=== PATIENT | male | born 1965 | race American Indian/Alaskan Native ===

== ENCOUNTER 2016-11-16 22:07 | Emergency (ER) | payer OTHER ==
[2016-11-16 22:14] VITALS: BP 126/88; PULSE 92; RESP 18; TEMP 98.1; O2SAT 99
--- NOTE | 2016-11-16 22:48 | C.PDOC ---
History Of Present Illness 51 y/o male c/o decreased hearing to the right ear after cleaning his ear with cotton-tip today. Patient notes his hearing worsened and is unsure if cotton tip was left in his ear. Denies fever, chills, ear discharge, bleeding, or any other complaints. Time Seen by Provider: 11/16/16 22:21 Chief Complaint (Nursing): ENT Problem History Per: Patient History/Exam Limitations: None Onset/Duration Of Symptoms: Hrs Current Symptoms Are (Timing): Still Present Quality (Ear): denies: Pain W/Touch, Discharge Severity: Mild Past Medical History Reviewed: Historical Data, Nursing Documentation, Vital Signs Vital Signs: Last Vital Signs Temp 98.1 F 11/16/16 22:11 Pulse 92 H 11/16/16 22:11 Resp 18 11/16/16 22:11 BP 126/88 11/16/16 22:11 Pulse Ox 99 11/16/16 23:37 - Medical History PMH: Asthma, HTN Family History: States: Unknown Family Hx - Social History Hx Alcohol Use: Yes Hx Substance Use: No - Immunization History Hx Tetanus Toxoid Vaccination: No Hx Influenza Vaccination: No Hx Pneumococcal Vaccination: No Review Of Systems Constitutional: Negative for: Fever, Chills ENT: Positive for: Other (Decreased right ear hearing. ). Negative for: Ear Discharge (No bleeding) Physical Exam - Physical Exam Appears: Non-toxic, No Acute Distress Skin: Warm, Dry Head: Atraumatic, Normacephalic, No Swelling (facial) Eye(s): bilateral: Normal Inspection Ear(s): Left: Normal, Right: TM Obscured By Wax (No foreign body noted.) Neurological/Psych: Oriented x3, Normal Speech, Normal Cognition ED Course And Treatment O2 Sat by Pulse Oximetry: 99 (RA) Pulse Ox Interpretation: Normal Progress Note: Impression: 51 y/o male c/o decrease hearing to the right ear after cleaning his ear with cotton-tip today. Patient is in no acute distress at this time. Patient was d/c on ear wax removal drops and was instructed to follow up with ENTfor further evaluation and to return if symptoms worsens. Disposition - Disposition Referrals: Param Garcia MD [Staff Provider] - Disposition: HOME/ ROUTINE Disposition Time: 22:45 Condition: STABLE Additional Instructions: Use ear drops as directed Follow up with ENT Return to ER if worse Prescriptions: Carbamide Peroxide [Debrox 15 Ml] 5 drop AD BID #1 bottle Instructions: Cerumen Impaction (ED) Forms: [facility] (T[place]anian) - Clinical Impression Clinical Impression: Impacted cerumen of right ear - Scribe Statement The provider has reviewed the documentation as recorded by the Scribe Danielle zapata All medical record entries made by the Scribe were at my direction and personally dictated by me. I have reviewed the chart and agree that the record accurately reflects my personal performance of the history, physical exam, medical decision making, and the department course for this patient. I have also personally directed, reviewed, and agree with the discharge instructions and disposition.
== END 2016-11-16 22:56 | disposition home or self-care (01) ==
LOC: SUPCPDRO 22:07 → C.ER 22:07
DX: H61.21 Impacted cerumen, right ear (principal)

== ENCOUNTER 2018-05-28 20:05 | Emergency (ER) | payer OTHER ==
[2018-05-28 20:24] VITALS: RESP 18; O2SAT 100
[2018-05-28] MEDS ORDERED: Hydrocodone/Acetaminophen 5 mg /300 mg Tab PO STA (20:37)
[2018-05-28] MEDS ORDERED: Sodium Chloride 0.9% 1,000 ML IV STA (20:38)
--- NOTE | 2018-05-28 21:35 | C.PDOC ---
History Of Present Illness 52 year old male with history of scoliosis and right rib pain presents to the emergency department with complaints of rib pain and and migraine headache. Patient reports that due to his scoliosis, his ribs rub on his hipbone and cause the pain. Patient reports a history of chronic migraine. Patient reports multiple episodes of vomiting today. Patient states he normally takes Excedrin for pain, but has been unable to take it today due to the vomiting. Patient's also reports that he seems hotter than normal, but states that they did not obtain a temperature. Patient denies trauma, chest pain, shortness of breath, abdominal pain, and change in urination. Time Seen by Provider: 05/28/18 20:23 Chief Complaint (Nursing): Back Pain History Per: Patient History/Exam Limitations: no limitations Onset/Duration Of Symptoms: Hrs Current Symptoms Are (Timing): Still Present Quality Of Discomfort: "Pain" Severity: Severe Previous Symptoms: Back Pain, Chronic Pain, Other (migraine) Associated Symptoms: None Past Medical History Reviewed: Historical Data, Nursing Documentation, Vital Signs Vital Signs: Last Vital Signs Temp 98.3 F 05/28/18 20:13 Pulse 73 05/28/18 20:13 Resp 18 05/28/18 20:13 BP 117/78 05/28/18 20:13 Pulse Ox 100 05/28/18 20:13 - Medical History PMH: Asthma, HTN Surgical History: No Surg Hx Family History: States: Unknown Family Hx - Social History Hx Alcohol Use: Yes Hx Substance Use: No - Immunization History Hx Tetanus Toxoid Vaccination: No Hx Influenza Vaccination: No Hx Pneumococcal Vaccination: No Review Of Systems Constitutional: Negative for: Fever, Chills Eyes: Negative for: Pain, Other (scleral icterus) ENT: Negative for: Mouth Swelling Cardiovascular: Positive for: Chest Pain (rib pain) Respiratory: Negative for: Cough, Shortness of Breath Gastrointestinal: Positive for: Vomiting. Negative for: Nausea, Diarrhea Genitourinary: Negative for: Dysuria, Hematuria Musculoskeletal: Positive for: Back Pain Skin: Negative for: Rash Neurological: Negative for: Weakness, Numbness, Dizziness Physical Exam - Physical Exam Appears: Non-toxic, In Acute Distress (uncomfortable), Other (patient is holding his right mid to lower back) Skin: No Normal Color, No Warm, No Rash Head: Atraumatic, Normacephalic Eye(s): bilateral: Normal Inspection (no scleral icterus), PERRL, EOMI Ear(s): Bilateral: Normal (no drainage) Nose: Normal Oral Mucosa: Moist Throat: Normal (no swelling or injection), No Erythema, Other (airway patent) Neck: Normal ROM, Supple Chest: Symmetrical Cardiovascular: Rhythm Regular, No Murmur Respiratory: Normal Breath Sounds, No Accessory Muscle Use, Other (normal inspiratory effort) Gastrointestinal/Abdominal: Soft, No Distention Back: CVA Tenderness, No Vertebral Tenderness Extremity: Normal ROM Extremity: Bilateral: Atraumatic Pulses: Left Dorsalis Pedis: Normal, Right Dorsalis Pedis: Normal Neurological/Psych: Oriented x3, Normal Speech, Normal Cognition, Normal Cranial Nerves ED Course And Treatment O2 Sat by Pulse Oximetry: 100 (RA) Pulse Ox Interpretation: Normal Progress Note: patient reports feeling much better after pain medication. he states he is ready to be discharged. Medical Decision Making Medical Decision Making: Plan: Morphine 2mg IVP NaCl IV Fluids Toradol 15mg IVP Vicodin 1 tab PO Zofran 4mg IVP Urinalysis Disposition Counseled Patient/Family Regarding: Studies Performed, Diagnosis, Need For Fo llowup, Rx Given - Disposition Disposition: HOME/ ROUTINE Disposition Time: 22:55 Condition: IMPROVED Prescriptions: Ibuprofen [Motrin Tab] 800 mg PO TID PRN #21 tab PRN Reason: Pain, Moderate (4-7) traMADol [Ultram] 50 mg PO TID PRN #15 tab PRN Reason: Pain, Severe (8-10) Instructions: Low Back Pain (DC) Forms: [facility] ([place]), General Discharge Instructions - Clinical Impression Clinical Impression: Low back pain - PA / CHRONIC MANAGER / Resident Statement MD/DO has reviewed & agrees with the documentation as recorded. - Scribe Statement The provider has reviewed the documentation as recorded by the Scribe (Michael Sánchez) All medical record entries made by the Scribe were at my direction and personally dictated by me. I have reviewed the chart and agree that the record accurately reflects my personal performance of the history, physical exam, medical decision making, and the department course for this patient. I have also personally directed, reviewed, and agree with the discharge instructions and disposition.
[2018-05-28 22:43] LABS: SQUAMOUS EPITHIAL < 1 /hpf (0-5); URINE BILIRUBIN NEGATIVE (NEGATIVE); URINE BLOOD NEGATIVE (NEGATIVE); URINE CLARITY Hazy (Clear); URINE COLOR Yellow (YELLOW); URINE GLUCOSE (UA) NORMAL (Normal); URINE LEUKOCYTE ESTERASE TRACE Leu/uL (Negative); URINE PROTEIN 1+ mg/dL (NEGATIVE); URINE UROBILINOGEN NORMAL mg/dL (0.2-1.0)
[2018-05-28 23:12] VITALS: BP 131/83; PULSE 8; TEMP 97.6
== END 2018-05-28 23:12 | disposition home or self-care (01) ==
LOC: C.ER 20:05
DX: M54.5 Low back pain (principal)
CPT/HCPCS: 81001; 96361; 96374; 96375; 99285; J1885; J2270; J2405; J7040

== ENCOUNTER 2018-06-23 11:08 | Outpatient (CLI) | payer OTHER | END 2018-06-23 11:09 | disposition home or self-care (01) | LOC: C.LAB 11:08 | DX: Z86.79 Personal history of other diseases of the circulatory system (principal); Z12.5 Encounter for screening for malignant neoplasm of prostate ==